=== PATIENT | female | born 1990 | race Caucasian/White ===

== ENCOUNTER 2016-07-17 08:23 | Emergency (ER) | payer BC, MEDICAID, SELFPAY ==
[~2016-07-17] VITALS: Ht 154.9 cm; Wt 83.5 kg
[2016-07-17] MEDS ORDERED: ERYTHROMYCIN OPHTH OINT OS ONE (10:00)
--- NOTE | 2016-07-17 10:20 | REP ---
CHEST, TWO VIEWS: There is no evidence of acute infiltrate. No pleural effusion is seen. The heart is normal in size. The mediastinal silhouette is unremarkable. The visualized osseous structures are intact. IMPRESSION: No acute pulmonary disease. Signed by Lv Cabral MD 07/17/2016 04:21 P
[2016-07-17] MEDS ORDERED: ERYT5OPO OD (10:28)
[2016-07-17 10:30] VITALS: BP 145/87
== END 2016-07-17 10:34 | disposition home or self-care (01) ==
LOC: M ED 09:36
DX: J20.9 Acute bronchitis, unspecified (principal); H10.31 Unspecified acute conjunctivitis, right eye

== ENCOUNTER → 2016-08-20 | Outpatient (REF) | payer MEDICAID ==
[~2016-08-20] MED LIST: ERYT5OPO OD
== END ==
LOC: M WUC 09:23
PROVIDERS: ATTEND Physician Assistant
DX: J02.9 Acute pharyngitis, unspecified (principal)

== ENCOUNTER → 2016-09-12 | Outpatient (REF) | payer MEDICAID, OTHER | LOC: M LAB REF 17:13 | PROVIDERS: ATTEND Family Medicine | DX: R87.612 Low grade squamous intraepithelial lesion on cytologic smear of cervix (LGSIL) (principal) ==

== ENCOUNTER → 2016-09-19 | Outpatient (CLI) | payer OTHER ==
[~2016-09-19] MED LIST changes: +GASTROGRAFIN SOLUTION 30ML (Q9963) As Ordered ONE; +ISOVUE-370 76% 100ML VIAL (Q9967) As Ordered ONE
--- NOTE | 2016-09-19 11:56 | REP ---
CT abdomen and pelvis with IV and oral contrast: There are no comparisons. The visualized lung martin are unremarkable. The hepatic parenchyma is diffusely less dense than the spleen compatible with hepato steatosis. The hepatic parenchyma is otherwise unremarkable. The gallbladder, pancreas and spleen are unremarkable. The adrenals, kidneys and abdominal aorta. There is no bowel distension or obstruction. Pelvis: The appendix is not identified. There is no pericecal inflammation or abscess. The cecum is located posteriorly in the pelvis. There is questionably a circumferential lesion of the proximal descending colon just above the cecum resulting in luminal narrowing. This could be artifact from the location of the cecum in combination with the usual cecal haustra, however, a napkin ring neoplasm cannot be entirely discounted. The uterus and left adnexa are unremarkable. A few follicles in the right ovary. Right adnexa is otherwise unremarkable. There is no ascites. There is no pelvic adenopathy. Impression: The appendix is not identified. The cecum is located posteriorly in the pelvis. There is no pericecal inflammation or abscess. However, there is possibly a circumferential neoplasm in the descending colon just above the cecum versus haustral artifact. Colonoscopy or barium enema might be considered for further evaluation. Hepato steatosis. No adenopathy or ascites. No bowel distension. Otherwise, negative CT of the abdomen and pelvis. Signed by Lv Cabrera MD 09/19/2016 11:47 A
== END ==
LOC: M RAD 10:09
PROVIDERS: ATTEND Physician Assistant
DX: R10.31 Right lower quadrant pain (principal)

== ENCOUNTER → 2016-09-20 | Outpatient (REF) | payer OTHER ==
[~2016-09-20] MED LIST changes: -GASTROGRAFIN SOLUTION 30ML (Q9963) As Ordered ONE; -ISOVUE-370 76% 100ML VIAL (Q9967) As Ordered ONE
== END ==
LOC: M SFHCPLAZ 15:14
DX: R10.31 Right lower quadrant pain (principal); E66.01 Morbid (severe) obesity due to excess calories; E83.41 Hypermagnesemia; Z53.9 Procedure and treatment not carried out, unspecified reason

== ENCOUNTER → 2016-09-21 | Outpatient (CLI) | payer OTHER ==
[2016-09-21 09:53] LABS: BASO % 0.5 % (0.0-1.0); EOS # 0.1 K/mm3 (0.0-0.50); EOS % 1.2 % (0.0-3.0); LARGE UNSTAINED CELL # 0.1 K/mm3 (0.0-0.4); LARGE UNSTAINED CELL % 2.3 % (0.0-4.0); LYMPH # 1.4 K/mm3 (1.5-6.5); LYMPH % 26.1 % (24.0-44.0); MEAN CORPUSCULAR HEMOGLOBIN 30.4 pg (27.0-33.0); MEAN CORPUSCULAR HGB CONC 33.4 g/dl (32.0-36.5); MEAN CORPUSCULAR VOLUME 91.3 fl (80.0-96.0); MONO # 0.3 K/mm3 (0.0-0.8); MONO % 6.8 % (0.0-5.0); NEUTROPHILS # 3.1 K/mm3 (1.8-7.7); PLATELET COUNT, AUTOMATED 226 k/mm3 (150-450); RED CELL DISTRIBUTION WIDTH 12.4 % (11.5-14.5)
[2016-09-21 10:00] LABS: CONTROL LINE HCG INT CTR LINE PRESENT
[2016-09-21 10:21] LABS: ALBUMIN 4.1 GM/DL (3.2-5.2); ALBUMIN/GLOBULIN RATIO 1.14 (1.00-1.93); ALKALINE PHOSPHATASE 64 U/L (45-117); ALT/SGPT 32 U/L (12-78); AMYLASE 41 U/L (25-115); ANION GAP 6 MEQ/L (8-16); AST/SGOT 20 U/L (15-37); BILIRUBIN,TOTAL 0.5 MG/DL (0.2-1.0); BLOOD UREA NITROGEN 10 MG/DL (7-18); CALCIUM LEVEL 9.1 MG/DL (8.5-10.1); CARBON DIOXIDE LEVEL 26 MEQ/L (21-32); CHLORIDE LEVEL 104 MEQ/L (98-107); CREATININE FOR GFR 0.62 MG/DL (0.55-1.02); GLOMERULAR FILTRATION RATE > 60.0 (>60); GLUCOSE, FASTING 80 MG/DL (70-105); MAGNESIUM LEVEL 2.5 MG/DL (1.8-2.4); POTASSIUM SERUM 4.2 MEQ/L (3.5-5.1); SODIUM LEVEL 136 MEQ/L (136-145); TOTAL PROTEIN 7.7 GM/DL (6.4-8.2)
== END ==
LOC: M LAB 08:46
PROVIDERS: ATTEND Internal Medicine
DX: R10.31 Right lower quadrant pain (principal); E66.01 Morbid (severe) obesity due to excess calories; E83.41 Hypermagnesemia

== ENCOUNTER → 2016-10-15 | Outpatient (REF) | payer OTHER ==
[~2016-10-15] MED LIST changes: +IMIT50TA PO; +MULT1TAB10 PO; +SERT50TA PO; +TRINTAB3 PO; +VITA100067 PO; +VITATAB11 PO
== END ==
LOC: M LAB REF 20:38
PROVIDERS: ATTEND Physician Assistant Medical
DX: R19.4 Change in bowel habit (principal)

== ENCOUNTER → 2016-10-22 | Outpatient (CLI) | payer OTHER ==
[~2016-10-22] VITALS: Ht 156.2 cm; Wt 81.6 kg
[~2016-10-22] MED LIST changes: +LIDOCAINE 2% INJ 100 MG/5 ML SDV (FOR ANES.) As Ordered ONE; +NS 1,000 ML IV ONE; +PROPOFOL 200 MG/20 ML VIAL As Ordered ONE
--- NOTE | 2016-10-22 15:22 | ROOR ---
Patient Name: Venita Glass Procedure Date: 10/22/2016 2:39 PM Date of : 1990 Age: 26 Room: OP02 Gender: Female Note Status: Finalized Procedure: Colonoscopy Indications: (Second degree family history of colon cancer at early ages~40-50's), Abnormal CT of the GI tract, Change in bowel habits Providers: Jay Jay EVANGELISTA MD Referring MD: Raya Valencia Pending Sale To [facility] Requesting Provider: Medicines: Monitored Anesthesia Care Complications: No immediate complications. Procedure: Pre-Anesthesia Assessment: - The heart rate, respiratory rate, oxygen saturations, blood pressure, adequacy of pulmonary ventilation, and response to care were monitored throughout the procedure. The Colonoscope was introduced through the anus and advanced to the terminal ileum, with identification of the appendiceal orifice and IC valve. The colonoscopy was performed without difficulty. The patient tolerated the procedure well. The quality of the bowel preparation was good. Findings: The perianal and digital rectal examinations were normal. Three sessile polyps were found in the sigmoid colon, splenic flexure and ascending colon. The polyps were 4 to 5 mm in size. These polyps were removed with a cold snare. Resection and retrieval were complete. The exam was otherwise normal throughout the examined colon. The terminal ileum appeared normal. Impression: - Three 4 to 5 mm polyps in the sigmoid colon, at the splenic flexure and in the ascending colon, removed with a cold snare. Resected and retrieved. - The colon is otherwise normal. - The examined portion of the ileum was normal. Recommendation: - Telephone endoscopist for pathology results in 2 weeks. - If the pathology report reveals adenomatous tissue, then repeat the colonoscopy for surveillance in 3 years. - If the pathology report indicates hyperplastic polyp, then repeat colonoscopy for screening purposes in 5 years. Jay Jay Evangelista MD Jay Jay EVANGELISTA MD 10/22/2016 3:22:16 PM This report has been signed electronically. Number of Addenda: 0 Note Initiated On: 10/22/2016 2:39 PM Estimated Blood Loss: Estimated blood loss: none.
[2016-10-22 15:50] VITALS: BP 133/60
== END | disposition home or self-care (01) ==
LOC: M OPP 12:54
PROVIDERS: ATTEND Internal Medicine Gastroenterology
DX: R93.3 Abnormal findings on diagnostic imaging of other parts of digestive tract (principal); R19.4 Change in bowel habit; Z80.0 Family history of malignant neoplasm of digestive organs; D12.5 Benign neoplasm of sigmoid colon; D12.3 Benign neoplasm of transverse colon; D12.2 Benign neoplasm of ascending colon; M54.5 Low back pain; K76.0 Fatty (change of) liver, not elsewhere classified; R10.84 Generalized abdominal pain; F32.9 Major depressive disorder, single episode, unspecified; G43.909 Migraine, unspecified, not intractable, without status migrainosus; Z87.891 Personal history of nicotine dependence; Z79.899 Other long term (current) drug therapy; Z80.3 Family history of malignant neoplasm of breast; Z83.79 Family history of other diseases of the digestive system

== ENCOUNTER → 2019-02-26 | Outpatient (REF) | payer OTHER ==
[~2019-02-26] MED LIST changes: +ERYT1OIN26 OD; -ERYT5OPO OD; -LIDOCAINE 2% INJ 100 MG/5 ML SDV (FOR ANES.) As Ordered ONE; -NS 1,000 ML IV ONE; -PROPOFOL 200 MG/20 ML VIAL As Ordered ONE; +SERT-141 PO; -SERT50TA PO; +TRINTAB PO; -TRINTAB3 PO
[2019-02-26 13:19] LABS: HEMATOCRIT 42.1 % (36.0-47.0); HEMOGLOBIN 14.2 g/dl (12.0-15.5); MEAN CORPUSCULAR HEMOGLOBIN 31.6 pg (27.0-33.0); MEAN CORPUSCULAR HGB CONC 33.7 g/dl (32.0-36.5); MEAN CORPUSCULAR VOLUME 93.8 fl (80.0-96.0); PLATELET COUNT, AUTOMATED 265 10^3/uL (150-450); RED BLOOD COUNT 4.49 10^6/uL (4.00-5.40); WHITE BLOOD COUNT 9.6 10^3/uL (4.0-10.0)
[2019-02-26 14:00] LABS: HCG, SERUM QUANTITATIVE 81831 MIU/ML
[2019-02-27 11:04] LABS: RUBELLA IgG QUALITATIVE IMMUNE (IMMUNE)
[2019-02-27 11:33] LABS: HEPATITIS C VIRUS ABY INDEX 0.1 INDEX (<0.8); HIV 1&2 SCREEN CENTAUR NEGATIVE (NEGATIVE)
== END ==
LOC: M LAB REF 12:05
PROVIDERS: ATTEND Obstetrics & Gynecology
DX: O36.80X0 Pregnancy with inconclusive fetal viability, not applicable or unspecified (principal); Z32.01 Encounter for pregnancy test, result positive

== ENCOUNTER → 2019-03-24 | Outpatient (REF) | payer OTHER | LOC: M LAB REF 16:59 | PROVIDERS: ATTEND Obstetrics & Gynecology | DX: Z34.81 Encounter for supervision of other normal pregnancy, first trimester (principal) ==

== ENCOUNTER → 2019-03-25 | Outpatient (CLI) | payer OTHER ==
[2019-03-25 15:22] LABS: TOTAL PROTEIN 24 HOUR URINE 199.5 MG/24HR (50-150); URINE TOTAL PROTEIN 9.5 MG/DL (0-12)
[2019-03-25 15:31] LABS: ALT/SGPT 20 U/L (12-78); BILIRUBIN,TOTAL 0.3 MG/DL (0.2-1.0); CREATININE FOR GFR 0.42 MG/DL (0.55-1.30); FREE T4 1.54 NG/DL (0.76-1.46); GLOMERULAR FILTRATION RATE > 60.0 (>60); LDH LACTATE DEHYDROGENASE 145 U/L (84-246); THYROID STIMULATING HORMONE < 0.005 uIU/ML (0.358-3.740); URIC ACID 3.7 MG/DL (2.6-6.0)
== END ==
LOC: M LAB 14:19
PROVIDERS: ATTEND Obstetrics & Gynecology
DX: I15.9 Secondary hypertension, unspecified (principal)

== ENCOUNTER → 2019-04-28 | Outpatient (REF) | payer OTHER ==
[2019-04-28 16:22] LABS: FREE T4 0.9 NG/DL (0.76-1.46); THYROID STIMULATING HORMONE 0.011 uIU/ML (0.358-3.740)
== END ==
LOC: M LABDRAW1 15:38
PROVIDERS: ATTEND Internal Medicine Endocrinology, Diabetes & Metabolism
DX: O99.281 Endocrine, nutritional and metabolic diseases complicating pregnancy, first trimester (principal); Z3A.00 Weeks of gestation of pregnancy not specified

== ENCOUNTER → 2019-05-19 | Outpatient (REF) | payer OTHER | LOC: M LAB REF 17:07 | PROVIDERS: ATTEND Obstetrics & Gynecology | DX: Z34.82 Encounter for supervision of other normal pregnancy, second trimester (principal) ==

== ENCOUNTER → 2019-05-27 | Outpatient (CLI) | payer OTHER ==
[2019-05-27 18:12] LABS: FREE T4 0.9 NG/DL (0.76-1.46); THYROID STIMULATING HORMONE 0.357 uIU/ML (0.358-3.740)
== END ==
LOC: M LAB 16:23
PROVIDERS: ATTEND Internal Medicine Endocrinology, Diabetes & Metabolism
DX: O99.281 Endocrine, nutritional and metabolic diseases complicating pregnancy, first trimester (principal); Z3A.00 Weeks of gestation of pregnancy not specified; E07.9 Disorder of thyroid, unspecified

== ENCOUNTER → 2019-07-01 | Outpatient (CLI) | payer OTHER ==
[2019-07-01 10:00] LABS: FREE T4 0.91 NG/DL (0.76-1.46); THYROID STIMULATING HORMONE 0.243 uIU/ML (0.358-3.740)
== END ==
LOC: M LAB 09:01
PROVIDERS: ATTEND Nurse Practitioner Family
DX: O99.283 Endocrine, nutritional and metabolic diseases complicating pregnancy, third trimester (principal); Z3A.00 Weeks of gestation of pregnancy not specified; E07.9 Disorder of thyroid, unspecified

== ENCOUNTER → 2019-07-15 | Outpatient (CLI) | payer OTHER ==
[2019-07-15 13:29] LABS: HEMATOCRIT 35.8 % (36.0-47.0); HEMOGLOBIN 12.2 g/dl (12.0-15.5); MEAN CORPUSCULAR HEMOGLOBIN 31.9 pg (27.0-33.0); MEAN CORPUSCULAR HGB CONC 34.1 g/dl (32.0-36.5); MEAN CORPUSCULAR VOLUME 93.7 fl (80.0-96.0); PLATELET COUNT, AUTOMATED 177 10^3/uL (150-450); RED BLOOD COUNT 3.82 10^6/uL (4.00-5.40); WHITE BLOOD COUNT 11.7 10^3/uL (4.0-10.0)
== END ==
LOC: M LAB 11:53
PROVIDERS: ATTEND Obstetrics & Gynecology
DX: Z34.82 Encounter for supervision of other normal pregnancy, second trimester (principal); Z3A.00 Weeks of gestation of pregnancy not specified

== ENCOUNTER → 2019-07-21 | Outpatient (CLI) | payer OTHER | LOC: M LAB 07:49 | PROVIDERS: ATTEND Obstetrics & Gynecology | DX: Z34.82 Encounter for supervision of other normal pregnancy, second trimester (principal); Z3A.00 Weeks of gestation of pregnancy not specified ==

== ENCOUNTER → 2019-08-06 | Outpatient (CLI) | payer OTHER ==
[2019-08-06 12:30] LABS: FREE T4 0.94 NG/DL (0.76-1.46); THYROID STIMULATING HORMONE 0.145 uIU/ML (0.358-3.740)
== END ==
LOC: M LAB 10:56
PROVIDERS: ATTEND Internal Medicine Endocrinology, Diabetes & Metabolism
DX: R94.6 Abnormal results of thyroid function studies (principal)

== ENCOUNTER → 2019-09-01 | Outpatient (REF) | payer OTHER ==
[~2019-09-01] MED LIST changes: -ERYT1OIN26 OD; +ERYT5OIN25 OD
== END ==
LOC: M LAB REF 12:10
PROVIDERS: ATTEND Obstetrics & Gynecology
DX: Z34.83 Encounter for supervision of other normal pregnancy, third trimester (principal)

== ENCOUNTER → 2019-09-08 | Outpatient (CLI) | payer OTHER ==
[2019-09-08 12:11] LABS: FREE T4 0.92 NG/DL (0.76-1.46); THYROID STIMULATING HORMONE 0.126 uIU/ML (0.358-3.740)
== END ==
LOC: M LAB 10:30
PROVIDERS: ATTEND Internal Medicine Endocrinology, Diabetes & Metabolism
DX: R94.6 Abnormal results of thyroid function studies (principal)

== ENCOUNTER → 2019-09-18 | Outpatient (CLI) | payer OTHER ==
[~2019-09-18] MED LIST changes: +GLYB25TA PO
--- NOTE | 2019-09-18 17:56 | REP ---
REASON FOR EXAM: Obtain biophysical profile and growth parameters. Multiple ultrasonographic images of the gravid uterus show a single living intrauterine gestation in the cephalic presentation. Doppler interrogation of the heart shows a heart rate of 158 beats per minute. The placenta is posterior and not low lying. The subjective amniotic fluid volume is within normal limits. The calculated amniotic fluid index is 20.3 within expected range 7.5-24.5. biophysical profile scores 2 for breathing, 2 for movement, 2 for tone, and 2 for amniotic fluid volume, giving a sum total of 8 out of 8. BPD 9.0 cm = 36 weeks 2 days HC 31.1 cm = 34 weeks 6 days AC 33.2 cm = 37 weeks 1 day FL 6.9 cm = 35 weeks 3 days The estimated weight is 2918 grams, which is at the 44th percentile for a 36 week 6 day gestational age. IMPRESSION: Single living intrauterine gestation, as described above with an estimated gestational age of 35 weeks 2 days via composite criteria and an estimated date of delivery of 10/21/2019 by today's exam.
== END ==
LOC: M WHC 14:04
PROVIDERS: ATTEND Advanced Practice Midwife
DX: O24.415 Gestational diabetes mellitus in pregnancy, controlled by oral hypoglycemic drugs (principal)

== ENCOUNTER → 2019-10-05 | Outpatient (CLI) | payer OTHER ==
[~2019-10-05] MED LIST changes: +IBUP80TA PO; +KETOROLAC 60MG 2ML VIAL As Ordered ONE; +MORPHINE PRES-FREE INJ 10 MG/10 ML VIAL (J2274) As Ordered ONE; +ONDANSETRON 4MG/2ML VIAL As Ordered ONE; +OXYTOCIN INJ 10 UNITS/ML VIAL (J2590) As Ordered ONE; +PERCOCET PO; +PHENYLephrine HCL 500 MCG/5 ML (100MCG/ML) SYRINGE (J2370) As Ordered ONE
== END ==
LOC: M LABSMTC 09:30
PROVIDERS: ATTEND Anesthesiology
DX: Z01.818 Encounter for other preprocedural examination (principal); Z11.59 Encounter for screening for other viral diseases
CPT/HCPCS: C9803; U0002

== ENCOUNTER 2019-10-07 05:00 | Inpatient (IN) | payer OTHER ==
[~2019-10-07] VITALS: Ht 154.9 cm; Wt 89.0 kg
[~2019-10-07 05:00] MED LIST changes: -IBUP80TA PO; -KETOROLAC 60MG 2ML VIAL As Ordered ONE; -MORPHINE PRES-FREE INJ 10 MG/10 ML VIAL (J2274) As Ordered ONE; -ONDANSETRON 4MG/2ML VIAL As Ordered ONE; -OXYTOCIN INJ 10 UNITS/ML VIAL (J2590) As Ordered ONE; -PERCOCET PO; -PHENYLephrine HCL 500 MCG/5 ML (100MCG/ML) SYRINGE (J2370) As Ordered ONE
[2019-10-07] MEDS ORDERED: LACTATED RINGER'S 1000 ML IV STA (05:17)
[2019-10-07] MEDS ORDERED: LR 1,000 ML IV SCH (05:17)
[2019-10-07] MEDS ORDERED: ceFAZolin SOD 2 GM in IV 1 EA IV ONE (05:30)
[2019-10-07] MEDS ORDERED: BICITRA 30ML SOLN UDC PO ONE (05:30)
[2019-10-07 06:12] LABS: HEMATOCRIT 36.7 % (36.0-47.0); HEMOGLOBIN 12.1 g/dl (12.0-15.5); MEAN CORPUSCULAR HEMOGLOBIN 28.9 pg (27.0-33.0); MEAN CORPUSCULAR VOLUME 87.8 fl (80.0-96.0); PLATELET COUNT, AUTOMATED 218 10^3/uL (150-450); RED BLOOD COUNT 4.18 10^6/uL (4.00-5.40); WHITE BLOOD COUNT 11.2 10^3/uL (4.0-10.0)
[2019-10-07] MEDS ORDERED: NALBUPHINE HCL 10 MG/ML AMP (J2300) IV PRN (07:38)
[2019-10-07] MEDS ORDERED: NALOXONE INJ 0.4MG/1ML VIAL (J2310 PER 1MG) IV PRN ×2 (07:38)
[2019-10-07] MEDS ORDERED: METOCLOPRAMIDE INJ 10MG/2ML VIAL (J2765 PER 1) IV PRN (07:38)
[2019-10-07] MEDS ORDERED: ONDANSETRON 4MG/2ML VIAL IV PRN ×2 (07:38→08:45)
[2019-10-07] MEDS ORDERED: diphenhydrAMINE 50MG/ML VIAL (J1200) IV PRN ×2 (07:38→08:45)
[2019-10-07 08:06] LABS: CORD GAS ABE V -3.7; CORD GAS HCO3 V 23.1 MEQ/L; CORD GAS PCO2 V 47.9 mmHg; CORD GAS PH V 7.301 UNITS; CORD GAS SBC V 20.3 MEQ/L; CORD GAS TCO2 V 24.6 MEQ/L
[2019-10-07 08:07] LABS: CORD GAS ABE A -0.9; CORD GAS HCO3 A 27.2 MEQ/L; CORD GAS PCO2 A 58.5 mmHg; CORD GAS PH A 7.285 UNITS; CORD GAS PO2 A 11.9 mmHg; CORD GAS SBC A 21.6 MEQ/L
[2019-10-07] MEDS ORDERED: MEASLES,MUMPS,RUBELLA VACCINE INJ (MMR-II) (90707) SC SCH (08:30)
[2019-10-07] MEDS ORDERED: RHOGAM 300 MCG (1500 IU) INJ (J2790) IM SCH (08:30)
[2019-10-07] MEDS ORDERED: PERCOCET 5MG/325MG TAB PO PRN (08:30)
[2019-10-07] MEDS ORDERED: MOM 30ML SUSPENSION UDC PO PRN (08:30)
[2019-10-07] MEDS ORDERED: OXYTOCIN DRIP 30 UNITS in IV 1 EA IV SCH (08:30)
[2019-10-07] MEDS ORDERED: HYDROMORPHONE HCL 0.5 MG/ 0.5 ML SYRINGE (J1170 PER 1) IV PRN (08:45)
[2019-10-07] MEDS ORDERED: oxyCODONE 5MG TAB PO PRN (08:45)
[2019-10-07] MEDS ORDERED: MEPERIDINE INJ 25 MG/ML VIAL (J2175) IV PRN (08:45)
[2019-10-07] MEDS ORDERED: fentaNYL 100 MCG/2 ML INJECTION (J3010) IV PRN (08:45)
[2019-10-07] MEDS ORDERED: OXYTOCIN 30 UNITS IN 0.9% NaCl 500ML IV BAG (J2590) As Ordered ONE (08:53)
[2019-10-07] MEDS: PRENATAL VITAMINS CHEWABLE TABLET PO SCH (09:00)
[2019-10-07] MEDS ORDERED: oxyCODONE 5MG TAB As Ordered ONE (09:52)
[2019-10-07 10:15] VITALS: BP 122/58
[2019-10-07 10:45] VITALS: BP 115/58
[2019-10-07 12:04] VITALS: BP 141/68
[2019-10-07 12:45] VITALS: BP 122/59
[2019-10-07] MEDS: KETOROLAC 30 MG/ML 1ML VIAL IV SCH ×2 (14:20→20:07)
[2019-10-07 18:23] VITALS: BP 118/52
[2019-10-07] MEDS: DOCUSATE SODIUM 100 MG CAP PO SCH (20:07)
[2019-10-07 21:56] VITALS: BP 104/54
[2019-10-08] MEDS: KETOROLAC 30 MG/ML 1ML VIAL IV SCH (02:05)
[2019-10-08 02:10] VITALS: BP 112/65
[2019-10-08 06:07] VITALS: BP 105/57
[2019-10-08 07:20] LABS: HEMATOCRIT 26.9 % (36.0-47.0); MEAN CORPUSCULAR HEMOGLOBIN 29.8 pg (27.0-33.0); MEAN CORPUSCULAR HGB CONC 33.1 g/dl (32.0-36.5); PLATELET COUNT, AUTOMATED 178 10^3/uL (150-450); RED BLOOD COUNT 2.99 10^6/uL (4.00-5.40); WHITE BLOOD COUNT 9.6 10^3/uL (4.0-10.0)
[2019-10-08 07:23] LABS: HEMOGLOBIN 8.9 g/dl (12.0-15.5)
[2019-10-08] MEDS: PRENATAL VITAMINS CHEWABLE TABLET PO SCH (08:16)
[2019-10-08] MEDS: DOCUSATE SODIUM 100 MG CAP PO SCH ×2 (08:16→20:30)
[2019-10-08] MEDS: IBUPROFEN 800 MG TAB PO SCH ×2 (09:59→18:05)
[2019-10-08 10:00] VITALS: BP 113/63
[2019-10-08 14:00] VITALS: BP 114/58
[2019-10-08 18:00] VITALS: BP 117/53
[2019-10-08] MEDS ORDERED: SIMETHICONE 80 MG CHEW TAB PO PRN (20:45)
[2019-10-08 22:00] VITALS: BP 125/61
[2019-10-09] MEDS: IBUPROFEN 800 MG TAB PO SCH ×2 (01:59→08:12)
[2019-10-09 02:00] VITALS: BP 121/66
[2019-10-09 06:00] VITALS: BP 122/59
[2019-10-09] MEDS: DOCUSATE SODIUM 100 MG CAP PO SCH (08:12)
[2019-10-09] MEDS: PRENATAL VITAMINS CHEWABLE TABLET PO SCH (08:12)
[2019-10-09] MEDS ORDERED: IBUP80TA PO (08:24)
[2019-10-09] MEDS ORDERED: PERCOCET PO (08:24)
--- NOTE | 2019-10-09 08:34 | DS.PDOC ---
Discharge Summary General Date of Admission Oct 07, 2019 at 05:00 Date of Discharge 10/09/19 Attending Physician: Biju Vergara DO Discharge Summary PROCEDURES PERFORMED DURING STAY: [Repeat c/s]. ADMITTING DIAGNOSES: 1. [Term for elective repeat c/s]. DISCHARGE DIAGNOSES: 1. [Same]. COMPLICATIONS/CHIEF COMPLAINT: Previous Ceserean Section. HISTORY OF PRESENT ILLNESS: [29 y/o female with history of prior c/s at term for elective repeat c/s]. HOSPITAL COURSE: [Unremarkable]. DISCHARGE MEDICATIONS: Please see below. ALLERGIES: Please see below. PHYSICAL EXAMINATION ON DISCHARGE: VITAL SIGNS: Please see below. GENERAL: [Normal female in NAD] HEENT: [WNL] NECK: [Normal] CARDIOVASCULAR EXAMINATION: RESPIRATORY EXAMINATION: ABDOMINAL EXAMINATION: [Soft non-tender. Incision clean and dry] EXTREMITIES: [no C/C/E] SKIN: [WNL] NEUROLOGICAL EXAMINATION: PSYCHIATRIC EXAMINATION: LABORATORY DATA: Please see below. IMAGING: PROGNOSIS: [good] ACTIVITY: [As tolerated]. DIET: [Regular] DISCHARGE PLAN: [Discharge home] DISPOSITION: Home. DISCHARGE INSTRUCTIONS: 1. [see discharge]. ITEMS TO FOLLOWUP ON ON OUTPATIENT: 1. [two weeks for incision check]. DISCHARGE CONDITION: [Stable]. TIME SPENT ON DISCHARGE: Greater than [40] minutes. Vital Signs/I&Os Vital Signs Date Time Temp Pulse Resp B/P (MAP) Pulse Ox O2 Delivery O2 Flow Rate FiO2 10/09/19 06:00 97.6 84 18 122/59 (80) 97 Room Air Laboratory Data CBC/BMP Discharge Medications Scheduled PRN Ibuprofen (Ibuprofen) 800 Mg Tablet, 800 MG PO Q8H PRN for ABDOMINAL PAIN Oxycodone/Acetaminophen (Oxycodone-Acetaminophen 5-325) 1 Each Tablet, 1 TAB PO Q4H PRN for MILD/MODERATE PAIN (PS 1-7) Allergies Coded Allergies: No Known Allergies (Verified , 10/19/16) Biju Vergara DO Oct 09, 2019 08:34
--- NOTE | 2019-10-10 09:13 | RO ---
DATE OF PROCEDURE: 10/07/2019 Venita is a 29-year-old female, 2, para 1-0-0-1, with a history of prior section, who has been admitted at term for an elective repeat section. PREOPERATIVE DIAGNOSIS: Term for elective repeat section. POSTOPERATIVE DIAGNOSIS: Term for elective repeat section. PROCEDURE: 1. Repeat section. 2. Revision of old scar. SURGEON: Dr. Vergara PERSONAL SERVICE REPRESENTATIVE: Saundra Richards ANESTHESIA: Spinal. COMPLICATION: None. ESTIMATED BLOOD LOSS: 500 mL. FINDINGS: Live male infant in occiput transverse position, scores 9, 9, weight 7 pounds 10 ounces. Normal appearing tubes and ovary. DESCRIPTION OF PROCEDURE: After obtaining informed consent, patient was taken to the operating room, where spinal anesthetic was found to be adequate. She was then draped and prepped in usual sterile fashion in the supine position. At this point, an elliptical incision was made over her old scar. This was carried down to the fascia. Fascia was incised in midline fashion and carried through laterally. Superior aspect of the fascia was then grasped with two Erika clamps, tented off, and dissected off the rectus muscles sharply. The inferior aspect was dissected off in a similar fashion. Rectus muscles in midline fashion. Perineum identified. Peritoneal cavity entered bluntly. Superior and inferior dissection of peritoneum was then done with good visualization of the bladder. With the aid of Saundra Richards, a Mobius skin retractor was placed. A low-transverse uterine incision was made. was delivered in atraumatic fashion. Nose and mouth bulb suctioned. Cord doubly clamped and cut, and the infant was handed over to the awaiting warmer. Cord blood and cord gas were sent. Placenta removed manually. Uterus cleared of all clot and debris, and the uterine incision was then repaired in two separate layers of #0 Vicryl suture. Pelvis copiously irrigated with normal saline and suctioned out. Attention then turned to the peritoneum, which was closed in a running fashion using #2-0 Vicryl. Fascia closed in two separate segments of #0 Vicryl sutures. All superficial bleeders coagulated, and the skin was reapproximated in a subcuticular fashion using #3-0 Vicryl on a Alan. Steri-Strips placed. The patient tolerated procedure well. She was then transferred to recovery room in stable condition.
== END 2019-10-09 12:25 | disposition home or self-care (01) | DRG 540 ==
LOC: M LDI 05:00 → M OBS 10:00
PROVIDERS: ADMIT Obstetrics & Gynecology; ATTEND Obstetrics & Gynecology
PROC: 10D00Z1 Extraction of Products of Conception, Low, Open Approach (ICD-10-PCS; principal; 2019-10-07 07:30)
DX: O34.211 Maternal care for low transverse scar from previous cesarean delivery (principal); Z3A.39 39 weeks gestation of pregnancy; Z37.0 Single live birth

== ENCOUNTER → 2019-11-24 | Outpatient (CLI) | payer OTHER ==
[~2019-11-24] MED LIST changes: +IBUP80TA PO; +PERCOCET PO
[2020-02-14 08:37] LABS: FREE T4 0.81 NG/DL (0.76-1.46); THYROID STIMULATING HORMONE 0.854 uIU/ML (0.358-3.740)
== END ==
LOC: M LAB 10:55
PROVIDERS: ATTEND Internal Medicine Endocrinology, Diabetes & Metabolism
DX: O99.283 Endocrine, nutritional and metabolic diseases complicating pregnancy, third trimester (principal); Z3A.00 Weeks of gestation of pregnancy not specified

== ENCOUNTER → 2020-03-19 | Outpatient (REF) | payer OTHER | LOC: M LAB REF 18:42 | PROVIDERS: ATTEND Physician Assistant | DX: J02.9 Acute pharyngitis, unspecified (principal) ==

== ENCOUNTER → 2022-09-24 | Outpatient (CLI) | payer OTHER ==
[~2022-09-24] MED LIST changes: +GLYB2.5T7 PO; -GLYB25TA PO
[2022-09-24 11:31] LABS: ESTRADIOL 71.6 PG/ML; FOLLICLE STIMULATING HORMONE 9.5 mIU/ML; PROGESTERONE 0.35 NG/ML
[2022-09-25 16:09] LABS: TESTOSTERONE FREE (DIRECT) 1.8 pg/mL (0.0-4.2)
== END ==
LOC: M LAB 10:09
PROVIDERS: ATTEND Obstetrics & Gynecology
DX: N94.6 Dysmenorrhea, unspecified (principal)

== ENCOUNTER → 2022-09-27 | Outpatient (CLI) | payer OTHER | LOC: M RAD 09:06 | PROVIDERS: ATTEND Obstetrics & Gynecology | DX: R10.2 Pelvic and perineal pain (principal) ==

== ENCOUNTER → 2022-10-04 | Outpatient (CLI) | payer OTHER | LOC: M WUC 09:45 | PROVIDERS: ATTEND Student in an Organized Health Care Education/Training Program | DX: M25.531 Pain in right wrist (principal) ==

== ENCOUNTER → 2022-11-30 | Outpatient (CLI) | payer OTHER | LOC: M WHC 12:28 | PROVIDERS: ATTEND Nurse Practitioner Family | DX: M79.651 Pain in right thigh (principal) ==

== ENCOUNTER → 2023-01-18 | Outpatient (CLI) | payer OTHER ==
[2023-01-18 10:03] LABS: BASO % 0.5 % (0.0-1.0); EOS # 0.1 10^3/uL (0.0-0.5); EOS % 1.4 % (0.0-3.0); HEMATOCRIT 42.8 % (36.0-47.0); HEMOGLOBIN 13.9 g/dl (12.0-15.5); LYMPH # 1.4 10^3/uL (1.5-5.0); LYMPH % 23.4 % (24.0-44.0); MEAN CORPUSCULAR HGB CONC 32.5 g/dl (32.0-36.5); MEAN CORPUSCULAR VOLUME 92.2 fl (80.0-96.0); MONO # 0.4 10^3/uL (0.0-0.8); MONO % 6.7 % (2.0-8.0); NEUTROPHILS % 67.5 % (36.0-66.0); PLATELET COUNT, AUTOMATED 273 10^3/uL (150-450); RED BLOOD COUNT 4.64 10^6/uL (4.00-5.40); WHITE BLOOD COUNT 5.9 10^3/uL (4.0-10.0)
[2023-01-18 10:24] LABS: HEMOGLOBIN A1c 4.6 % (4.0-6.0)
[2023-01-18 10:38] LABS: FERRITIN 20.7 NG/ML (7.3-270.7); THYROID STIMULATING HORMONE 0.604 uIU/ML (0.55-4.78)
[2023-01-18 10:39] LABS: TOTAL 25(OH) VITAMIN D 16.3 NG/ML (20.0-100.0)
[2023-01-18 10:40] LABS: VITAMIN B12 LEVEL 430 PG/ML (211-911)
[2023-01-18 10:41] LABS: FREE T4 1.03 NG/DL (0.89-1.76)
[2023-01-18 10:42] LABS: ALBUMIN 4.3 G/DL (3.2-5.2); ALKALINE PHOSPHATASE 58 U/L (46-116); ALT/SGPT 24 U/L (7.0-40); AST/SGOT 15 U/L (<34); BILIRUBIN,TOTAL 0.6 MG/DL (0.3-1.2); BLOOD UREA NITROGEN 9 MG/DL (9-23); CALCIUM LEVEL 9.1 MG/DL (8.5-10.1); CARBON DIOXIDE LEVEL 27 MMOL/L (20-31); CHLORIDE LEVEL 107 MMOL/L (98-107); CHOLESTEROL LEVEL 133 MG/DL (<200); CHOLESTEROL RISK RATIO 2.86 (<5); CREATININE FOR GFR 0.52 MG/DL (0.55-1.30); GLOMERULAR FILTRATION RATE > 60.0 (>60); GLUCOSE, FASTING 91 MG/DL (60-100); HDL CHOLESTEROL 46.4 MG/DL (>40); MAGNESIUM LEVEL 2.1 MG/DL (1.8-2.4); NON-HDL-C 86.6 MG/DL; POTASSIUM SERUM 4.5 MMOL/L (3.5-5.1); SODIUM LEVEL 141 MMOL/L (136-145); TOTAL PROTEIN 7.4 G/DL (5.7-8.2); TRIGLYCERIDES LEVEL 68 MG/DL (<150)
== END ==
LOC: M RAD 09:18
PROVIDERS: ATTEND Physician Assistant
DX: M25.551 Pain in right hip (principal); M25.552 Pain in left hip

== ENCOUNTER → 2023-03-07 | Outpatient (RCR) | payer OTHER | LOC: M PT 02-26 09:14 | PROVIDERS: ATTEND Physician Assistant | DX: M86.9 Osteomyelitis, unspecified (principal) ==

== ENCOUNTER 2023-03-25 09:52 | Outpatient (RCR) | payer OTHER | END 2023-04-07 | LOC: M PT 09:52 | PROVIDERS: ATTEND Physician Assistant | DX: M86.9 Osteomyelitis, unspecified (principal) ==

== ENCOUNTER 2023-04-12 09:47 | Emergency (ER) | payer OTHER ==
[~2023-04-12] VITALS: Ht 154.9 cm; Wt 86.1 kg
[2023-04-12] MEDS ORDERED: IMIT50TA PO (09:59)
[2023-04-12] MEDS ORDERED: METOCLOPRAMIDE INJ 10MG/2ML VIAL IV ONE (11:30)
[2023-04-12] MEDS ORDERED: NS 1,000 ML IV ONE (11:30)
[2023-04-12] MEDS ORDERED: diphenhydrAMINE 50MG/ML VIAL IV ONE (11:30)
[2023-04-12] MEDS ORDERED: KETOROLAC 30 MG/ML 1ML VIAL IV ONE (11:30)
[2023-04-12 12:12] VITALS: BP 125/60; TEMP 97.5; O2SAT 98
[2023-04-12] MEDS ORDERED: RIZA10TA64 PO (16:00)
== END 2023-04-12 16:15 | disposition home or self-care (01) ==
LOC: M ED 09:47
DX: G43.909 Migraine, unspecified, not intractable, without status migrainosus (principal); I10 Essential (primary) hypertension; Z79.899 Other long term (current) drug therapy
CPT/HCPCS: 70450; 70551; 84702; 96361; 96374; 96375; 99284; J1100; J1200; J1885; J2765

== ENCOUNTER → 2023-05-14 | Outpatient (CLI) | payer OTHER ==
[~2023-05-14] MED LIST changes: +RIZA10TA64 PO
[2023-05-14 10:18] LABS: BASO % 0.6 % (0.0-1.0); EOS # 0.1 10^3/uL (0.0-0.5); EOS % 1.2 % (0.0-3.0); HEMATOCRIT 44.4 % (36.0-47.0); HEMOGLOBIN 14.4 g/dl (12.0-15.5); LYMPH # 1.4 10^3/uL (1.5-5.0); LYMPH % 21.4 % (24.0-44.0); MEAN CORPUSCULAR HEMOGLOBIN 29.7 pg (27.0-33.0); MEAN CORPUSCULAR HGB CONC 32.4 g/dl (32.0-36.5); MEAN CORPUSCULAR VOLUME 91.5 fl (80.0-96.0); MONO # 0.5 10^3/uL (0.0-0.8); MONO % 6.9 % (2.0-8.0); NEUTROPHILS # 4.5 10^3/uL (1.5-8.5); NEUTROPHILS % 69.4 % (36.0-66.0); PLATELET COUNT, AUTOMATED 324 10^3/uL (150-450); RED BLOOD COUNT 4.85 10^6/uL (4.00-5.40); WHITE BLOOD COUNT 6.5 10^3/uL (4.0-10.0)
[2023-05-14 10:26] LABS: ERYTHROCYTE SEDIMENTATION RATE 27 mm/hr (0-20)
[2023-05-14 11:22] LABS: ALBUMIN 4.1 G/DL (3.2-5.2); ALKALINE PHOSPHATASE 61 U/L (46-116); ALT/SGPT 24 U/L (7.0-40); AST/SGOT 12 U/L (<34); BILIRUBIN,TOTAL 0.4 MG/DL (0.3-1.2); BLOOD UREA NITROGEN 10 MG/DL (9-23); CALCIUM LEVEL 9.1 MG/DL (8.5-10.1); CARBON DIOXIDE LEVEL 27 MMOL/L (20-31); CHLORIDE LEVEL 107 MMOL/L (98-107); CREATININE FOR GFR 0.55 MG/DL (0.55-1.30); GLOMERULAR FILTRATION RATE > 60.0 (>60); GLUCOSE, FASTING 78 MG/DL (60-100); POTASSIUM SERUM 4.2 MMOL/L (3.5-5.1); SODIUM LEVEL 139 MMOL/L (136-145); THYROID STIMULATING HORMONE 0.615 uIU/ML (0.55-4.78); TOTAL PROTEIN 7.1 G/DL (5.7-8.2)
[2023-05-14 11:23] LABS: TOTAL 25(OH) VITAMIN D 36.8 NG/ML (20.0-100.0)
[2023-05-14 14:45] LABS: RHEUMATOID FACTOR QUANT 7.8 IU/ML (<14)
[2023-05-15 10:10] LABS: ANTINUCLEAR ANTIBODIES DIRECT Negative (Negative)
== END ==
LOC: M LAB 09:13
PROVIDERS: ATTEND Psychiatry & Neurology Neurology
DX: R51.9 Headache, unspecified (principal)

== ENCOUNTER 2023-11-04 08:26 | Outpatient (RCR) | payer OTHER | END 2023-11-06 | LOC: M PT 08:26 | PROVIDERS: ATTEND Psychiatry & Neurology Neurology | DX: M54.2 Cervicalgia (principal) ==

== ENCOUNTER → 2023-11-08 | Outpatient (CLI) | payer OTHER | LOC: M WUC 09:50 | PROVIDERS: ATTEND Student in an Organized Health Care Education/Training Program | DX: M25.532 Pain in left wrist (principal) ==

== ENCOUNTER → 2023-11-11 | Outpatient (CLI) | payer OTHER | LOC: M WHC 07:23 | PROVIDERS: ATTEND Physician Assistant | DX: N64.89 Other specified disorders of breast (principal); Z80.3 Family history of malignant neoplasm of breast ==

== ENCOUNTER 2023-11-12 08:30 | Outpatient (RCR) | payer OTHER | END 2023-12-07 | LOC: M PT 08:30 | PROVIDERS: ATTEND Psychiatry & Neurology Neurology | DX: M54.2 Cervicalgia (principal) ==

== ENCOUNTER → 2023-11-26 | Outpatient (CLI) | payer OTHER | LOC: M WHC 08:32 | PROVIDERS: ATTEND Physician Assistant | DX: R92.8 Other abnormal and inconclusive findings on diagnostic imaging of breast (principal); Z80.3 Family history of malignant neoplasm of breast; N60.12 Diffuse cystic mastopathy of left breast ==

== ENCOUNTER 2024-05-08 13:57 | Emergency (ER) | payer OTHER ==
[~2024-05-08] VITALS: Ht 154.9 cm; Wt 83.0 kg
[2024-05-08] MEDS ORDERED: ZONI50CA11 (14:04)
[2024-05-08 14:55] LABS: BLOOD UREA NITROGEN 14 MG/DL (9-23); CALCIUM LEVEL 9.3 MG/DL (8.5-10.1); CARBON DIOXIDE LEVEL 24 MMOL/L (20-31); CHLORIDE LEVEL 106 MMOL/L (98-107); CREATININE FOR GFR 0.66 MG/DL (0.55-1.30); GLOMERULAR FILTRATION RATE > 60.0 (>60); GLUCOSE, FASTING 104 MG/DL (60-100); MAGNESIUM LEVEL 2.1 MG/DL (1.8-2.4); SODIUM LEVEL 141 MMOL/L (136-145)
[2024-05-08 17:49] VITALS: BP 144/72; TEMP 97.8; O2SAT 100
== END 2024-05-08 17:50 | disposition home or self-care (01) ==
LOC: M ED 13:57
DX: M25.542 Pain in joints of left hand (principal); G43.909 Migraine, unspecified, not intractable, without status migrainosus; Z79.899 Other long term (current) drug therapy

== ENCOUNTER → 2024-07-29 | Outpatient (CLI) | payer OTHER ==
[~2024-07-29] MED LIST changes: +ZONI50CA11
[2024-07-29 10:30] LABS: BASO % 0.7 % (0.0-1.0); EOS # 0.1 10^3/uL (0.0-0.5); HEMATOCRIT 42.3 % (36.0-47.0); HEMOGLOBIN 13.8 g/dl (12.0-15.5); LYMPH # 1.3 10^3/uL (1.5-5.0); LYMPH % 21.1 % (24.0-44.0); MEAN CORPUSCULAR HEMOGLOBIN 30.2 pg (27.0-33.0); MEAN CORPUSCULAR HGB CONC 32.6 g/dl (32.0-36.5); MEAN CORPUSCULAR VOLUME 92.6 fl (80.0-96.0); MONO # 0.5 10^3/uL (0.0-0.8); MONO % 8.1 % (2.0-8.0); NEUTROPHILS # 4.1 10^3/uL (1.5-8.5); NEUTROPHILS % 68.4 % (36.0-66.0); RED BLOOD COUNT 4.57 10^6/uL (4.00-5.40)
[2024-07-29 10:54] LABS: PLATELET COUNT, AUTOMATED 160 10^3/uL (150-450)
[2024-07-29 11:01] LABS: ALKALINE PHOSPHATASE 54 U/L (35-104); ALT/SGPT 26 U/L (7.0-40); AST/SGOT 23 U/L (<34); BILIRUBIN,TOTAL 0.5 MG/DL (0.3-1.2); BLOOD UREA NITROGEN 11 MG/DL (9-23); CALCIUM LEVEL 8.7 MG/DL (8.5-10.1); CARBON DIOXIDE LEVEL 26 MMOL/L (20-31); CHLORIDE LEVEL 105 MMOL/L (98-107); CREATININE FOR GFR 0.55 MG/DL (0.55-1.30); GLOMERULAR FILTRATION RATE > 90.0 (>60); GLUCOSE, FASTING 91 MG/DL (60-100); POTASSIUM SERUM 4.7 MMOL/L (3.5-5.1); SODIUM LEVEL 139 MMOL/L (136-145); TOTAL PROTEIN 6.9 G/DL (5.7-8.2)
== END ==
LOC: M LAB 09:48
PROVIDERS: ATTEND Psychiatry & Neurology Neurology
DX: R51.9 Headache, unspecified (principal)

== ENCOUNTER → 2024-11-12 | Outpatient (REF) | payer OTHER ==
[2024-11-12 14:36] LABS: CHOLESTEROL LEVEL 135.0 MG/DL (<200); CHOLESTEROL RISK RATIO 2.77 (<5); LDL CHOLESTEROL 73.3 MG/DL (<100); NON-HDL-C 86.3 MG/DL; TRIGLYCERIDES LEVEL 65.0 MG/DL (<150)
[2024-11-12 14:39] LABS: FREE T4 1.27 NG/DL (0.89-1.76)
[2024-11-12 14:55] LABS: ESTIMATED AVERAGE GLUCOSE 100.0 MG/DL (60-110)
[2024-11-14 12:27] LABS: HPV APTIMA Not Detected (Not Detected)
== END ==
LOC: M SFHCPLAZ 08:51
PROVIDERS: ATTEND Nurse Practitioner Family
DX: Z13.220 Encounter for screening for lipoid disorders (principal); Z13.1 Encounter for screening for diabetes mellitus; Z13.29 Encounter for screening for other suspected endocrine disorder

== ENCOUNTER → 2024-11-23 | Outpatient (CLI) | payer OTHER ==
[2024-11-23 09:09] LABS: FREE T4 1.14 NG/DL (0.89-1.76)
== END ==
LOC: M LAB 08:00
PROVIDERS: ATTEND Nurse Practitioner Family
DX: Z13.29 Encounter for screening for other suspected endocrine disorder (principal)